=== PATIENT | male | born 2000 | race Caucasian/White ===

== ENCOUNTER 2023-05-30 10:07 | Emergency (ER) | payer MEDICAID, OTHER ==
[~2023-05-30] VITALS: Ht 175.3 cm; Wt 54.4 kg
[2023-05-30] MEDS ORDERED: IBUP-1955 PO (11:53)
[2023-05-30 12:02] VITALS: BP 112/78; TEMP 98; O2SAT 97
== END 2023-05-30 12:02 | disposition home or self-care (01) ==
LOC: ER 10:07
DX: G64 Other disorders of peripheral nervous system (principal); Z60.2 Problems related to living alone
CPT/HCPCS: 70450-TC; 72125-TC